=== PATIENT | male | born 1930 | race Caucasian/White ===

== ENCOUNTER 2016-09-10 13:22 | Outpatient (CLI) | payer MEDICARE ==
[2016-09-10 13:45] LABS: Hemoglobin A1c 8.7 % (4.0-6.0)
== END 2016-09-10 13:23 | disposition home or self-care (01) ==
LOC: NAV LABSP 13:22
PROVIDERS: ATTEND Physical Medicine & Rehabilitation
DX: E11.43 Type 2 diabetes mellitus with diabetic autonomic (poly)neuropathy (principal)
CPT/HCPCS: 83036